=== PATIENT | male | born 1995 | race Hispanic/Latino ===

== ENCOUNTER 2021-01-29 19:53 | Emergency (ER) | payer OTHER ==
[~2021-01-29] VITALS: Ht 188 cm; Wt 86.4 kg
[2021-01-29] MEDS ORDERED: CYCLOBENZAPRINE 5MG TABLET PO ONE (20:20)
[2021-01-29] MEDS ORDERED: IBUP200C33 PO (20:29)
[2021-01-29] MEDS ORDERED: CYCL5TAB PO (20:53)
[2021-01-29 21:15] VITALS: BP 128/78
== END 2021-01-29 21:20 | disposition home or self-care (01) ==
LOC: M ED 19:53
DX: G89.29 Other chronic pain (principal); M54.5 Low back pain